=== PATIENT | female | born 1995 | race Caucasian/White ===

== ENCOUNTER → 2018-03-04 | Outpatient (CLI) | payer BC ==
[~2018-03-04] MED LIST: AMPH10TA2 PO; BCPILLS PO; FLUO10CA48 PO; NRN100 PO; VYV30 PO
[2018-03-04 11:06] LABS: ALBUMIN 3.3 gm/dl (3.4-5.0); TOTAL PROTEIN 6.8 gm/dl (6.4-8.2)
== END | disposition home or self-care (01) ==
LOC: C.LAB 09:37
PROVIDERS: ATTEND Physician Assistant Medical
DX: L70.0 Acne vulgaris (principal)